=== PATIENT | female | born 1955 | race Caucasian/White ===

== ENCOUNTER 2019-11-21 12:08 | Emergency (ER) | payer MEDICARE, SELFPAY ==
[2019-11-21 12:11] VITALS: BP 178/78; PULSE 82; RESP 20; TEMP 36.6; O2SAT 100
[2019-11-21 13:04] LABS: Basophils Absolute Auto 0.1 K/mm3 (0.0-0.1); Basophils Percent Auto 1.1 % (0.2-1.2); Eosinophils Absolute Auto 0.2 K/mm3 (0-0.3); Eosinophils Percent Auto 4.4 % (0-4.4); Hematocrit 38.8 % (37.0-47.0); Immature Granulocyte Absolute 0.01 K/mm3 (0.00-0.031); Immature Granulocyte Percent A 0.2 % (0-0.5); Lymphocytes Absolute Auto 1.12 K/mm3 (0.9-3.2); Lymphocytes Percent Auto 20.5 % (18.3-44.2); Mean Corpuscular HGB Conc 30.9 g/dl (32-36); Mean Corpuscular Hemoglobin 26.9 pg (26-34); Mean Platelet Volume 10.8 fl (7.4-10.4); Monocytes Absolute Auto 0.4 K/mm3 (0.1-0.6); Monocytes Percent Auto 6.4 % (2.6-8.5); Neutrophils Absolute Auto 3.7 K/mm3 (1.3-6.7); Neutrophils Percent Auto 67.4 % (45.5-73.1); Platelet Count Result 281 k/mm3 (150-375); Red Blood Count 4.46 M/mm3 (4.2-5.4); Red Cell Distribution Width 16.9 % (11.5-14.5); White Blood Count 5.5 K/mm3 (4.5-10.0)
[2019-11-21 13:24] LABS: Alanine Aminotransferase 29 U/L (4-35); Albumin Level 4.5 g/dL (3.5-5.1); Alkaline Phosphatase 87 U/L (38-126); Anion Gap 8 mmol/L (8-16); Aspartate Amino Transferase 41 U/L (14-36); Bilirubin,Total 0.4 mg/dL (0.2-1.3); Blood Urea Nitrogen 16 mg/dL (7-17); Calcium 9.7 mg/dL (8.4-10.2); Carbon Dioxide 31 mmol/L (22-30); Chloride 103 mmol/L (98-107); Estimated CRCL calculation 48 ml/min; Estimated Glomerular Filt Rate > 60; Glucose 97 mg/dL (65-105); Potassium 3.9 mmol/L (3.4-5.0); Sodium 142 mmol/L (137-145)
[2019-11-21 13:32] LABS: Add Urine Microscopic? YES; Appearance Urine Clear (Clear); Bilirubin Urine Negative (Negative); Blood Urine Negative (Negative); Color Urine Amber (Yellow); Glucose Urine UA Negative (Negative); Ketones Urine Negative (Negative); Leukocyte Esterase Ur Negative LEU/UL (Negative); Nitrate Urine Negative (Negative); Protein Urine 2+ mg/dL (Negative); Specific Grav Ur 1.023 (1.001-1.035); Transitional Epi Cells Urine Rare /hpf (None Seen); Urobilinogen Urine Negative mg/dL (<2.0); WBC Urine 0-3 /hpf
--- NOTE | 2019-11-21 13:58 | ED.GENADULT ---
HPI - General Adult General Chief complaint: Recheck/Abnormal Lab/Rx <Mary Page PA-C - Last Filed: 11/21/19 14:07> Stated complaint: blood pressure readings high <Mary Page PA-C - Last Filed: 11/21/19 14:07> Time Seen by Provider: 11/21/19 12:19 <Mary Page PA-C - Last Filed: 11/21/19 14:07> Source: patient <JORDON Orellana Last Filed: 11/21/19 14:07> Mode of arrival: ambulatory <JORDON Orellana Last Filed: 11/21/19 14:07> Limitations: no limitations <Mary Page PA-C - Last Filed: 11/21/19 14:07> History of Present Illness HPI narrative: Patient presents with chief complaint of concern for high blood pressure. Patient states that she has been having some headaches and she when she has them she noticed that her blood pressure is high. She states that her blood pressure has been in the 160s?70s/90s to 100s. Patient states that she is more on losartan and Norvasc 2.5 mg. Patient states that she was told that her Norvasc was going to be increased but she had to come to this area from [place] to help take care of her mother and father so she has not been able to have the medication adjusted. Patient states she is also on her last tablet of Norvasc. Patient states that she is not sure how long she will be in this area helping with her parents. <Mary Page PA-C - Last Filed: 11/21/19 14:07> Related Data Home medications: Home Medications Medication Instructions Recorded Confirmed amlodipine [Norvasc] 2.5 mg PO DAILY 11/21/19 losartan 100 mg PO DAILY 11/21/19 <JORDNO Orellana Last Filed: 11/21/19 14:07> Allergies/adverse reactions: Allergies Allergy/AdvReac Type Severity Reaction Status Date / Time No Known Allergies Allergy Verified 11/21/19 15:19 <JORDON Orellana Last Filed: 11/21/19 14:07> Review of Systems Review of Systems: Narrative: CONSTITUTIONAL: Denies fever, chills, or sweats. EYES: Denies visual changes, redness, or discharge. ENT: Denies rhinorrhea, congestion, sore throat, or otalgia. CARDIOVASCULAR: Denies chest pain, palpitations, or edema. RESPIRATORY: Denies cough or dyspnea. GASTROINTESTINAL: Denies abdominal pain, nausea, vomiting, or diarrhea. GENITOURINARY: Denies dysuria or hematuria. SKIN: Denies rash or itching. MUSCULOSKELETAL: Denies back pain, myalgia, or joint pain NEUROLOGIC: Reports intermittent headache, denies numbness, dizziness, or weakness. PSYCHIATRIC: Denies anxiety or depression. <Mary Page PA-C - Last Filed: 11/21/19 14:07> Exam Narrative: Exam Narrative: GENERAL: Well-appearing, well-nourished. HEAD: Normocephalic, atraumatic. EYES: PERRLA and EOMI. ENT: Nares clear, no rhinorrhea or epistaxis. Mucous membranes moist. Oropharynx without tonsillar hypertrophy exudate or other lesions. Bilateral TMs pearly shanks nonbulging NECK: Supple. No adenopathy or masses. No vertebral tenderness or loss of ROM. CHEST: Clear to auscultation. No respiratory distress. No wheezes rales or rhonchi HEART: Regular rate and rhythm. Normal peripheral pulses. ABDOMEN: Soft, nontender, nondistended, normal active bowel sounds. No bruises noted. EXTREMITIES: No acute changes in ROM. No edema. SKIN: Warm, dry, no rash. NEURO: No focal deficits. Alert and oriented x3. PSYCH: Normal mood and affect. <Mary Page PA-C - Last Filed: 11/21/19 14:07> Course Vital Signs Vital signs: Vital Signs Temperature 97.8 F 11/21/19 12:11 Pulse Rate 82 11/21/19 12:11 Respiratory Rate 20 11/21/19 12:11 Blood Pressure 178/78 H 11/21/19 12:11 Pulse Oximetry 100 11/21/19 12:11 Temperature 97.8 F 11/21/19 12:11 Pulse Rate 64 11/21/19 14:30 Respiratory Rate 16 11/21/19 14:30 Blood Pressure 140/60 11/21/19 14:30 Pulse Oximetry 98 11/21/19 14:30 <Mary Page PA-C - Last Filed: 11/21/19 14:07> Vital Signs Temperature 97.8
[2019-11-21 14:30] VITALS: BP 140/60; PULSE 64; RESP 16; O2SAT 98
== END 2019-11-21 14:30 | disposition home or self-care (01) ==
PROVIDERS: Physician Assistant; Emergency Provider General Practice
DX: I10 Essential (primary) hypertension (principal)
CPT/HCPCS: 36415; 80053; 81001; 85025; 99283